=== PATIENT | male | born 1945 | race Caucasian/White ===

== ENCOUNTER 2021-03-20 05:56 | Day surgery (SDC) | payer MEDICARE ==
[2021-03-18 13:31] LABS: BASOPHILS % (AUTO) 0.8 % (0.0-5.0); EOSINOPHILS % (AUTO) 2.3 % (0.0-8.0); HEMATOCRIT 49.3 % (42-54); LYMPHOCYTES % (AUTO) 12.1 % (21.0-51.0); MEAN CORPUSCULAR HEMOGLOBIN 30.9 pg (27.0-33.0); MEAN CORPUSCULAR VOLUME 96.5 fL (79-99); MONOCYTES % (AUTO) 10.6 % (3.0-13.0); NEUTROPHILS % (AUTO) 73.5 % (40.0-77.0); PLATELET COUNT (AUTO) 167 K/uL (130-400); RED BLOOD CELL COUNT(AUTO) 5.11 MIL/uL (4.50-6.20); RED CELL DISTRIBUTION WIDTH 13.8 % (11.0-15.5); WHITE BLOOD COUNT (AUTO) 9.6 K/uL (4.8-10.8)
[2021-03-18 13:31] LABS: APPEARANCE,URINE Clear (CLEAR); BILIRUBIN,URINE Negative (NEGATIVE); COLOR,URINE Yellow (YELLOW); GLUCOSE, URINE (UA) Negative (NEGATIVE); KETONES,URINE Negative (NEGATIVE); LEUKOCYTE ESTERASE ,URINE Small (NEGATIVE); NITRATE,URINE Negative (NEGATIVE); OCCULT BLOOD,URINE Negative (NEGATIVE); PROTEIN,URINE Negative (NEGATIVE); UROBILINOGEN,URINE 0.2 mg/dL (0.2-1.0)
[2021-03-18 13:39] LABS: CREATININE 1.9 mg/dL (0.5-1.5); POTASSIUM 4.7 mmol/L (3.5-5.1)
[2021-03-18 13:39] LABS: BACTERIA,URINE Rare /HPF (None Seen); RBC,URINE 0-1 /HPF (0-1); SQUAMOUS EPITHELIAL CELL,UR Rare /HPF (0-2)
[2021-03-18 13:42] LABS: INR 2.25 (0.85-1.15); PROTHROMBIN TIME 22.8 SEC (9.6-11.6)
[2021-03-18 13:43] LABS: PARTIAL THROMBOPLASTIN TIME 41.7 SEC (26.3-35.5)
[2021-03-19 14:53] VITALS: BP 131/76
[2021-03-20] VITALS (26 sets, daily range): BP systolic 95–138; BP diastolic 50–85
[~2021-03-20] VITALS: Ht 185.4 cm; Wt 158.2 kg
[~2021-03-20 05:56] MED LIST: ATEN50TA PO; FURO20TA4 PO; HUMALOG SQ; LANTUS SQ; LEVO75CA5 PO; ROSU20TA23 PO; SACU1TAB7 PO; SPIR25TA6 PO; WARF-57 PO; WARF7.5T49 PO
[2021-03-20] MEDS ORDERED: SODIUM CHLORIDE 0.9% 1000ML 1,000 ML IV ONE (06:38)
[2021-03-20 07:04] LABS: INR 2.05 (0.85-1.15); PROTHROMBIN TIME 20.9 SEC (9.6-11.6)
[2021-03-20 07:05] LABS: PARTIAL THROMBOPLASTIN TIME 40.3 SEC (26.3-35.5)
[2021-03-20] MEDS ORDERED: NITROGLYCERIN 2 MG/VIAL VIAL IV ONE (08:05)
[2021-03-20] MEDS ORDERED: MEPERIDINE-PF 25 MG/ML SYG ONE ×2 (08:05→09:23)
[2021-03-20] MEDS ORDERED: SODIUM BICARB 50MEQ 50ML VIAL 50 ML ONE (08:05)
[2021-03-20] MEDS ORDERED: LIDOCAINE HCL 400MG/20ML VIAL ONE (08:06)
[2021-03-20] MEDS ORDERED: MIDAZOLAM HCL 1 MG/ML 2ML VIAL ONE (08:06)
[2021-03-20] MEDS ORDERED: BIVALIRUDIN 250 MG/VIAL IV ONE (08:31)
[2021-03-20] MEDS ORDERED: ACETAMINOPHEN-CODEINE 300/30MG TAB PO PRN ×2 (09:45)
[2021-03-20] MEDS ORDERED: MILRINONE-D5W 20 MG/100 ML 100 ML IV SCH ×2 (09:45→14:30)
[2021-03-20] MEDS ORDERED: IOHEXOL 350 MG/ML 100ML INFUS..BTL IV ONE (10:03)
[2021-03-20] MEDS ORDERED: FUROSEMIDE 20MG VIAL (10MG/ML) ONE (11:37)
[2021-03-20] MEDS ORDERED: INSULIN HUMULIN R 100 UNIT/ML 3ML SQ SCH (13:30)
[2021-03-20] MEDS ORDERED: INSULIN HUMULIN R 100 UNIT/ML 3ML ONE (13:44)
== END 2021-03-20 17:25 | disposition home or self-care (01) ==
LOC: DAH 05:56
PROVIDERS: ATTEND Internal Medicine Cardiovascular Disease
DX: I25.10 Atherosclerotic heart disease of native coronary artery without angina pectoris (principal); I25.82 Chronic total occlusion of coronary artery; I35.0 Nonrheumatic aortic (valve) stenosis; I25.5 Ischemic cardiomyopathy; I48.0 Paroxysmal atrial fibrillation; E66.01 Morbid (severe) obesity due to excess calories; G47.33 Obstructive sleep apnea (adult) (pediatric); I87.2 Venous insufficiency (chronic) (peripheral); N18.4 Chronic kidney disease, stage 4 (severe); I50.43 Acute on chronic combined systolic (congestive) and diastolic (congestive) heart failure; Z95.1 Presence of aortocoronary bypass graft; Z68.41 Body mass index [BMI] 40.0-44.9, adult; Z79.4 Long term (current) use of insulin; Z79.899 Other long term (current) drug therapy
CPT/HCPCS: 36415 ×2; 71045; 80048; 81001; 82948 ×2; 85025; 85610 ×2; 85730 ×2; 87077; 87088; 87186; 93005; 93461; A4215; A4216; A4221; A4222; A4223 ×3; A4606; A4663; C1760; C1769 ×3; C1893; C1894 ×3; J1815; J1940; J2175 ×2; J2250; J2260 ×3; J3490 ×3; J7030; Q9965; Q9967; 96365; 96366; 99156; 99157; J0583

== ENCOUNTER → 2021-05-02 | Outpatient (CLI) | payer MEDICARE ==
[~2021-05-02] MED LIST changes: +IOHEXOL-350 50ML VIAL IV ONE; +IOHEXOL-350 75 ML VIAL IV ONE
== END | disposition home or self-care (01) ==
LOC: RAH 10:01
PROVIDERS: ATTEND Internal Medicine Cardiovascular Disease
DX: I35.0 Nonrheumatic aortic (valve) stenosis (principal); I51.7 Cardiomegaly; I25.10 Atherosclerotic heart disease of native coronary artery without angina pectoris
CPT/HCPCS: 74174; 75574; Q9967 ×2

== ENCOUNTER 2023-11-22 07:10 | Day surgery (SDC) | payer MEDICARE ==
[2023-11-19 10:20] LABS: BASOPHILS # (AUTO) 0.08 K/uL (0.00-0.20); BASOPHILS % (AUTO) 0.8 % (0.0-5.0); EOSINOPHILS # (AUTO) 0.21 K/uL (0.00-0.70); EOSINOPHILS % (AUTO) 2.1 % (0.0-8.0); HEMATOCRIT 44.8 % (42-54); IMMATURE GRANULOCYTE ABSOLUTE 0.12 K/uL (0-1); LYMPHOCYTES # (AUTO) 1.1 K/uL (1.0-4.8); LYMPHOCYTES % (AUTO) 10.8 % (21.0-51.0); MEAN CORPUSCULAR HEMOGLOBIN 31.4 pg (27.0-33.0); MEAN CORPUSCULAR HGB CONC 32.1 g/dL (32.0-36.0); MEAN CORPUSCULAR VOLUME 97.6 fL (79-99); MONOCYTES % (AUTO) 10.1 % (3.0-13.0); NEUTROPHILS # (AUTO) 7.6 K/uL (1.8-7.7); PLATELET COUNT (AUTO) 183 K/uL (130-400); RED BLOOD CELL COUNT(AUTO) 4.59 MIL/uL (4.50-6.20); RED CELL DISTRIBUTION WIDTH 13.2 % (11.0-15.5); WHITE BLOOD COUNT (AUTO) 10.2 K/uL (4.8-10.8)
[2023-11-19 10:27] LABS: CREATININE 1.6 mg/dL (0.5-1.5); POTASSIUM 4.7 mmol/L (3.5-5.1)
[2023-11-19 10:30] LABS: INR 1.51 (0.85-1.15); PROTHROMBIN TIME 17.1 SEC (9.6-11.6)
[2023-11-19 10:31] LABS: PARTIAL THROMBOPLASTIN TIME 37.6 SEC (26.3-35.5)
[2023-11-19 11:16] VITALS: BP 145/71; PULSE 80; RESP 19
[2023-11-22] VITALS (8 sets, daily range): BP systolic 127–150; BP diastolic 36–76; PULSE 70–80; RESP 16–19
[~2023-11-22] VITALS: Ht 182.9 cm; Wt 106.6 kg
[~2023-11-22 07:10] MED LIST changes: +ALEVE PO; +CHOL500051 PO; +FINA5TAB41 PO; +GLUCOSAMINE PO; -HUMALOG SQ; +INSLAN SQ; +INSU100V SQ; -IOHEXOL-350 50ML VIAL IV ONE; -IOHEXOL-350 75 ML VIAL IV ONE; -LANTUS SQ; +MAGNESIUM CITRATE PO; +MELA10CA2 PO; -ROSU20TA23 PO; +VITA1CAP85 PO; -WARF7.5T49 PO; +[UNRECOGNIZED DRUG - OTHER] PO
[2023-11-22] MEDS: 0.9%NACL 1000ML 1,000 ML IV ONE (11:57)
[2023-11-22] MEDS ORDERED: LIDOCAINE HCL 1% MDV 50ML VIAL ONE (12:46)
[2023-11-22] MEDS ORDERED: CEFAZOLIN SODIUM 1 GM VIAL ONE (12:46)
[2023-11-22] MEDS ORDERED: BUPIVACAINE/PF 0.25% 30ML VIAL IJ ONE (12:46)
[2023-11-22] MEDS ORDERED: MIDAZOLAM HCL 1 MG/ML 2ML VIAL ONE (13:15)
[2023-11-22] MEDS ORDERED: MEPERIDINE-PF 50 MG/ML SYG ONE (13:15)
== END 2023-11-22 18:26 | disposition home or self-care (01) ==
LOC: DAH 07:10
PROVIDERS: ATTEND Internal Medicine Cardiovascular Disease
DX: Z45.02 Encounter for adjustment and management of automatic implantable cardiac defibrillator (principal); I25.5 Ischemic cardiomyopathy; I48.0 Paroxysmal atrial fibrillation; I44.2 Atrioventricular block, complete; N18.4 Chronic kidney disease, stage 4 (severe); I50.42 Chronic combined systolic (congestive) and diastolic (congestive) heart failure; I87.2 Venous insufficiency (chronic) (peripheral); E66.9 Obesity, unspecified; G47.33 Obstructive sleep apnea (adult) (pediatric); Z98.890 Other specified postprocedural states; Z95.1 Presence of aortocoronary bypass graft; Z79.01 Long term (current) use of anticoagulants; Z79.899 Other long term (current) drug therapy; Z68.31 Body mass index [BMI] 31.0-31.9, adult
CPT/HCPCS: 80048; 85025; 85610; 85730; 36415; 93005; 33264; 82948; C1882; J0690; J7030; J0665; J2250; J2175; J3490; A4215; A4222; A4221; A4663; A4216; A4606; A4223 ×3; 99156; 99157